=== PATIENT | female | born 1980 | race Caucasian/White ===

== ENCOUNTER 2025-04-02 10:49 | Emergency (ER) | payer BC, SELFPAY ==
--- OUTSIDE RECORDS SUMMARY | 2012-05-12 19:00 | XMS_ITS | Continuity of Care Document ---
Author Organization [facility] Address [address] [place] [address] Phone Care Team Providers Care Child Advocate Name Role Phone MD CASH GILBERT Unavailable Unavailable Advance Directives Directive Yes / No Effective Date File Name No Information Encounters Encounter Description Practice Location Reason(s) For Visit Diagnoses Date Provider Providers Copied on Encounter [facility], [address] [facility], [place], [place], [id number], [place] tel:[phone] [facility] No Information MD KATERINA CASH. [address] [place] [address], [id number], [place]. tel:[phone] Referring Provider: ELLI AG, [address] [place] [address],[place], [address]. tel:[phone] Family History Family Member Type Diagnosis Age At Onset No Information Payers Payer name Insurance type Covered democrat ID Authoriza tigeoff(s) [facility] INDEMNITY [id number] Social History Type Description Quantity Date Captured Comments Sex Female Smoking Status No Information Chief Complaint And Reason For Visit No Information History Of Present Illness Encounter Date Complaint History Of Prese nt Illness No Information Instructions Date Instruction Additional Infor mation No Information Assessments Type Assessment Date No Information
[2025-04-02 10:50] VITALS: BP 193/91; PULSE 66; RESP 24; TEMP 37.1; O2SAT 97
--- OUTSIDE RECORDS SUMMARY | 2025-04-02 10:57 | XMS_ITS | Clinical Summary ---
Author Organization [employer] [address] - [address] Address [address] [place] [address] Phone Care Team Providers Care Manager Transportation Name Role Phone Anatoly Elizabeth MD Primary Care Provider [phone] Allergies Active Allergy Reactions Criticality Noted Date Comments Opioids-Meperidine And Related Hives,Rash,Itching High 11/03/2011 Medications VITS W-CA,FE,FA,<1MG , ( VITAMIN ORAL) Take 1 Tab by mouth daily. Active PROGESTERONE VAGINAL Insert vaginally 2 times daily. 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 Gender Identity Not on file Sexual Orientation Not on file Occupation Industry Job Start Date Job End Date Not on file Not on file Not on file Not on file Plan of Treatment Health Maintenance Due Date Last Done Comments DTAP/TDAP/TD VACCINES (1 - Tdap) 2000 HEPATITIS B VACCINES (1 of 3 - 19+ 3-dose series) 04/26 HPV/Cotest (21-29) 2002 HPV VACCINES (1 - 3-dose SCDM series) 2008 CERVICAL CANCER SCREENING 2011 HPV/Cotest (30-65) 2011 PAP SMEAR 2011 BREAST CANCER SCREENING 2021 INFLUENZA VACCINE (#1) 2025 RSV VACCINE (60+ or ) (1 - 1-dose 75+ series) 2056 Care Teams Manager Transportation Relationship Specialty Start Date End Date Anatoly Elizabeth MD [address] [place] [address] PCP - General Family Practice 11/03/11
[2025-04-02] MEDS: ASPIRIN 81 MG CHEWABLE TABLET 324 MG PO (11:09)
--- NOTE | 2025-04-02 11:09 | ECG_ITS ---
Test Date: 2025-04-02 10:52:25 Measurements Intervals [place] Rate: 78 P: 53 KS: 146 QRS: 62 QRSD: 91 T: 39 QT: 352 QTc: 402 Interpretive Statements SINUS RHYTHM WITH SINUS ARRHYTHMIA INTERPRETATION BASED ON A DEFAULT AGE OF 40 YEARS No previous ECG available for comparison Electronically Signed On 04-02-2025 16:07:08 CDT by Cristhian Boston M.D.
--- NOTE | 2025-04-02 11:09 | ED.CHESTPAIN ---
HPI - Chest Pain General Chief Complaint: Chest Pain Stated Complaint: arm numb Time Seen by Provider: 04/02/25 11:00 Source: patient and RN notes reviewed Mode of arrival: ambulatory Limitations: no limitations History of Present Illness HPI narrative: 44-year-old female presents Express Care complaining of chest pressure and left arm numbness for approximately 20 minutes. Patient said she was driving her car when the symptoms started suddenly. Patient describes that she developed chest pressure feels like an elephant sitting on her chest followed by left arm numbness. Patient denies any shortness of breath with jaw pain, nausea, vomiting, cough, fevers, or any other symptoms. Patient says she has a history of anxiety and takes medications for it that maybe she is having a panic attack however the chest pressure continues to persist. Patient denies any cardiac history, diabetes, high blood pressure, high cholesterol, or any other significant medical problems. Related Data Home Medications ?Medication ?Instructions ?Recorded ?Confirmed ?Last Taken ?Type citalopram .ROUTE 04/02/25 Unknown History Allergies Allergy/AdvReac Type Severity Reaction Status Date / Time morphine Allergy Unknown Unknown Verified 04/02/25 11:07 MEPERIDINE HCL Allergy Unknown Unknown Uncoded 04/02/25 11:07 Review of Systems Review of Systems: CONSTITUTIONAL: Denies fever, chills, or sweats. EYES: Denies visual changes, redness, or discharge. ENT: Denies rhinorrhea, congestion, sore throat, or otalgia. CARDIOVASCULAR: Positive for chest pressure. Negative for palpitations, dizziness, lightheadedness, or edema. RESPIRATORY: Denies cough or dyspnea. GASTROINTESTINAL: Denies abdominal pain, nausea, vomiting, or diarrhea. GENITOURINARY: Denies dysuria or hematuria. SKIN: Denies rash or itching. MUSCULOSKELETAL: Denies back pain, joint pain, or myalgia. NEUROLOGIC: Denies headache, loss of consciousness, or weakness. Positive left arm numbness. PSYCHIATRIC: Denies anxiety or depression. All other systems reviewed are negative, except as documented in HPI. [facility] Family History Family History Mother Hypertension Family history of elevated blood lipids Family history of diabetes mellitus in first degree relative Grandparent Hypertension Family history of elevated blood lipids Cerebrovascular accident Diabetes mellitus Father Family history of elevated blood lipids Family history of heart disease in male family member before age 55 Sibling Family history of mental disorder Other Family history of arthritis Family history of cardiovascular disease Family history of gout Social History Social History Second hand tobacco smoke exposure: No Smoking end date: 07/27/10 Alcohol intake: current Comments At the time of my signature, I reviewed and agree with the nursing past medical, surgical, social, and family history. There is no relevant family history pertinent to the patient complaint. Exam Narrative: GENERAL: This is a well-nourished, well-developed adult, in no apparent distress. They are non ill-appearing, nontoxic appearing. Patient is anxious appearing. Patient is morbidly obese. Physical exam limited due to large body habitus. HEAD: normocephalic, atraumatic. EYES: Sclera clear/white. Conjunctiva normal. Vision is grossly intact. Extraocular movements intact EARS: External ears normal, Hearing grossly intact. NOSE: External nose miladis THROAT: Mucous membranes moist, NECK: Neck supple, CARDIOVASCULAR: Regular rate and rhythm without murmurs, gallops, or rubs. RESPIRATORY: Clear to auscultation. Breath sounds equal bilaterally. No wheezes, rales, or rhonchi. SKIN: warm, Dry, intact with no suspicious lesions or rash, good texture and turgor. NEURO: awake, alert, and oriented to person, place and time. There were no obvious focal neurologic abnormalities. EXTREMITIES: No joint tenderness, effusion, or edema noted. Course Course Emergency Course: Portions of this record may have been created with voice recognition software Level of Care: Express Care Visit Vital Signs Vital signs: Vital Signs Temperature 98.7 F 04/02/25 10:50 Pulse Rate 66 04/02/25 10:50 Respiratory Rate 24 H 04/02/25 10:50 Blood Pressure 193/91 H 04/02/25 10:50 Pulse Oximetry 97 04/02/25 10:50 Oxygen Delivery Room Air 04/02/25 10:50 Temperature 98.7 F 04/02/25 10:50 Pulse Rate 66 04/02/25 10:50 Respiratory Rate 24 H 04/02/25 10:50 Blood Pressure 193/91 H 04/02/25 10:50 Pulse Oximetry 97 09/07/25 10:50 Oxygen Delivery Room Air 04/02/25 10:50 Reviewed Transfer Transfered to: [facility] Transportation: ALS Transfer rationale: Chest pain, patient requiring higher level care Accepting physician: Dr. Patricia MDM - Chest Pain [facility] Narrative Medical decision making narrative: EKG sinus arrhythmia with no ischemic findings, no ST elevation or depression. Patient continues to have chest pressure that is not subsiding. Could be an anxiety intact however cannot rule out cardiac condition given her symptoms. Given patient's symptoms, it is recommend the patient seek a higher level care and proceed immediately to the emergency department. Patient is agreeable to go to [facility] ER. Called over to [facility] ER and spoke with Chapito Muñoz who is aware this patient and Dr. Patricia who accepted this patient for transfer. Patient is to go via ALS ambulance. Patient given 4 baby aspirins. Differential Diagnosis Differential diagnosis: Likely unstable angina pectoris, st elevation myocardial infarction, chest pain and other (Anxiety attack) ECG Data EKG #1: Attestation: I personally reviewed and interpreted this ECG as follows: ECG completion date: 04/02/25 ECG completion time: 10:52 EKG Interpretation: normal rate, sinus rhythm (Sinus arrhythmia), no ectopy, no ST changes, normal QRS, NL axis and no acute changes Critical Care Time Critical Care Time Critical Care Time: No Discharge Plan Discharge Clinical Impression: Chest pain Qualifiers: Chest pain type: unspecified Qualified Code(s): R07.9 - Chest pain, unspecified Patient Disposition: Acute Care Hospital Condition: Stable Patient Language: Malagasy Prescriptions: No Action citalopram [Celexa] .ROUTE Follow-up/Referrals: PHYSICIAN,JAR FILLER [Primary Care Provider, Internal Medicine] Time of Disposition: 11:08
== END 2025-04-02 11:16 | disposition short-term general hospital (02) ==
DX: R07.9 Chest pain, unspecified (principal); Z87.891 Personal history of nicotine dependence; F41.9 Anxiety disorder, unspecified
CPT/HCPCS: 93005; 99215; A9270; G0463